=== PATIENT | female | born 1975 | race Hispanic/Latino ===

== ENCOUNTER 2024-07-30 20:01 | Inpatient (IN) | payer SELFPAY ==
[~2024-07-30] VITALS: Ht 152.4 cm; Wt 56.7 kg
[~2024-07-30 20:01] MED LIST: ACET-66 PO; BUSP7.5T7 PO; CARI4.5C PO; CEPH500B PO; DAPA10TA PO; DULO40CA2 PO; IBUP-2070 PO; INSLAN SQ; LOSA25TA41 PO; METF-446 PO; METO-391 PO; PREG150C PO; TRAZ-187 PO
[2024-07-30 20:33] VITALS: BP 135/91; PULSE 112; RESP 20; TEMP 98.3; O2SAT 99
[2024-07-30] MEDS ORDERED: VANCOMYCIN KIT 1 GM/250 ML IV.KIT IV ONE (22:30)
[2024-07-30] MEDS ORDERED: VANCOMYCIN PROTOCOL PER PHARMACY IV SCH (22:30)
[2024-07-30 23:11] LABS: HEMATOCRIT 30.1 % (36-48); MEAN CORPUSCULAR HEMOGLOBIN 28.7 pg (27.0-33.0); MEAN CORPUSCULAR HGB CONC 32.2 g/dL (32.0-36.0); MEAN CORPUSCULAR VOLUME 89.1 fL (79-99); RED BLOOD CELL COUNT(AUTO) 3.38 MIL/uL (4.00-5.50); RED CELL DISTRIBUTION WIDTH 13.1 % (11.0-15.5); WHITE BLOOD COUNT (AUTO) 11.7 K/uL (4.8-10.8)
[2024-07-30 23:21] LABS: CREATININE 1.6 mg/dL (0.5-1.0); POTASSIUM 4.5 mmol/L (3.5-5.1)
[2024-07-30 23:25] LABS: ALBUMIN 2.8 g/dL (3.5-5.0); BILIRUBIN,TOTAL 0.3 mg/dL (0.2-1.0); TOTAL PROTEIN, SERUM 7.7 g/dL (6.0-8.3)
[2024-07-31] VITALS (30 sets, daily range): BP systolic 93–145; BP diastolic 55–93; PULSE 80–100; RESP 12–20; TEMP 97.3–98.4; O2SAT 95–99
[2024-07-31] MEDS: ceFEPime HCL 1 GM VIAL IVPB SCH (02:14)
[2024-07-31] MEDS: VANCOMYCIN KIT 1 GM/250 ML IV.KIT IV ONE (03:42)
[2024-07-31] MEDS: duloXETine HCL 30 MG CAP PO SCH (08:00)
[2024-07-31] MEDS ORDERED: metFORmin HCL 500 MG TABLET PO SCH (08:00)
[2024-07-31] MEDS ORDERED: PoTASSium chl 10% ELIXIR 20MEQ 20 MEQ/15 ML UDCUP PO PRN (09:00)
[2024-07-31] MEDS ORDERED: PoTASSium chloRIDE 20MEQ/100ML 100 ML IV PRN (09:00)
[2024-07-31] MEDS: LoSARTan 25 MG TABLET PO SCH (09:00)
[2024-07-31] MEDS ORDERED: LACTULOSE 20 GM/30 ML UDCUP PO PRN (09:00)
[2024-07-31] MEDS: FAMOTIDINE 20MG VIAL IV SCH (10:54)
[2024-07-31] MEDS: INSULIN humuLIN R 100 UNIT/ML 3ML SQ SCH (11:30)
[2024-07-31] MEDS: 0.9%NACL 1000ML 1,000 ML IV ONE (11:33)
[2024-07-31] MEDS ORDERED: LIDOCAINE PF 100MG/5ML (2%) SYRINGE 5ML ONE (11:45)
[2024-07-31] MEDS ORDERED: MIDAZOLAM HCL 1 MG/ML 2ML VIAL ONE (11:46)
[2024-07-31] MEDS ORDERED: proPOFol 10 MG/ML 20ML VIAL IV ONE (11:46)
[2024-07-31] MEDS ORDERED: rocuRONium bROMide 10MG/1ML 5ML VL ONE (11:46)
[2024-07-31] MEDS ORDERED: FENTanyl CITRate PF 50 MCG/1 ML 2ML VIAL ONE (11:47)
[2024-07-31] MEDS ORDERED: phenylEPHRINE HCL 10 MG/ML 1ML VIAL IV ONE (12:02)
[2024-07-31] MEDS ORDERED: dexaMETHasone SOD PHOSPHATE 10MG/ML 1ML VIAL ONE (12:19)
[2024-07-31] MEDS ORDERED: ondanSETRON 4MG INJ ONE (12:19)
[2024-07-31] MEDS ORDERED: PHARMACY COMMUNICATION MISC SCH (16:30)
[2024-07-31] MEDS: INSULIN GLARgine 100 UNITS/ML 10 ML VIAL SQ SCH (20:45)
[2024-07-31] MEDS: queTIAPine fuMARate 100 MG TAB PO SCH (22:29)
[2024-07-31] MEDS: metoPROLOL tartRATE 50 MG TAB PO SCH (22:29)
[2024-07-31] MEDS: atorVAStatin 40 MG TABLET PO SCH (22:29)
[2024-08-01 03:57] VITALS: BP 103/64; PULSE 85; RESP 20; TEMP 98.4
[2024-08-01] MEDS: VANCOMYCIN 1G/250ML KIT 250 ML IV SCH (05:53)
[2024-08-01] MEDS: acetaMINOPHEN 325 MG TAB PO PRN (06:25)
[2024-08-01 07:30] VITALS: BP 124/77; PULSE 90; RESP 18; TEMP 97.7; O2SAT 95
[2024-08-01] MEDS ORDERED: morPHINE 2 MG SYG IM ONE (10:00)
[2024-08-01 10:18] LABS: BASOPHILS # (AUTO) 0.03 K/uL (0.00-0.20); BASOPHILS % (AUTO) 0.3 % (0.0-5.0); EOSINOPHILS # (AUTO) 0.17 K/uL (0.00-0.70); EOSINOPHILS % (AUTO) 1.6 % (0.0-8.0); HEMATOCRIT 26.6 % (36-48); IMMATURE GRANULOCYTE ABSOLUTE 0.06 K/uL (0-1); LYMPHOCYTES # (AUTO) 2.1 K/uL (1.0-4.8); LYMPHOCYTES % (AUTO) 19.2 % (21.0-51.0); MEAN CORPUSCULAR HEMOGLOBIN 29.2 pg (27.0-33.0); MEAN CORPUSCULAR HGB CONC 32.3 g/dL (32.0-36.0); MEAN CORPUSCULAR VOLUME 90.2 fL (79-99); MONOCYTES # (AUTO) 0.5 K/uL (0.1-1.0); MONOCYTES % (AUTO) 4.3 % (3.0-13.0); NEUTROPHILS # (AUTO) 8.1 K/uL (1.8-7.7); PLATELET COUNT (AUTO) 295 K/uL (130-400); RED BLOOD CELL COUNT(AUTO) 2.95 MIL/uL (4.00-5.50); RED CELL DISTRIBUTION WIDTH 13.2 % (11.0-15.5); WHITE BLOOD COUNT (AUTO) 10.9 K/uL (4.8-10.8)
[2024-08-01 10:23] LABS: INR 1.06 (0.85-1.15); PROTHROMBIN TIME 11.4 SEC (9.6-11.6)
[2024-08-01 10:24] LABS: PARTIAL THROMBOPLASTIN TIME 28.2 SEC (26.3-35.5)
[2024-08-01 10:35] LABS: ALBUMIN 2.3 g/dL (3.5-5.0); BILIRUBIN,TOTAL 0.2 mg/dL (0.2-1.0); MAGNESIUM 1.9 mg/dL (1.80-2.40); POTASSIUM 4.2 mmol/L (3.5-5.1); TOTAL PROTEIN, SERUM 6.7 g/dL (6.0-8.3)
[2024-08-01] MEDS: ENOXAPARIN SODIUM 40 MG/0.4 ML SYRINGE SQ SCH (11:21)
[2024-08-01 11:41] VITALS: BP 130/79; PULSE 92; RESP 19; TEMP 98
[2024-08-01] MEDS: ketOROlac 15MG/ML VIAL (15MG/ML) IV ONE (11:56)
[2024-08-01 16:40] VITALS: BP_SYST 162; BP_SYST 163; BP_DIAS 93; BP_DIAS 98; PULSE 93; RESP 18; TEMP 97.5
[2024-08-01 19:40] VITALS: BP 167/92; PULSE 96; RESP 20; TEMP 97.5; O2SAT 100
[2024-08-01] MEDS: hydrALAZine 25MG TABLET PO SCH (20:58)
[2024-08-01 23:16] VITALS: BP 128/57; PULSE 80; RESP 20; TEMP 97.2
[2024-08-02] VITALS (8 sets, daily range): BP systolic 115–195; BP diastolic 76–114; PULSE 85–101; RESP 18–22; TEMP 97.4–98.1; O2SAT 98–100
[2024-08-02 05:48] LABS: BASOPHILS # (AUTO) 0.03 K/uL (0.00-0.20); BASOPHILS % (AUTO) 0.4 % (0.0-5.0); EOSINOPHILS # (AUTO) 0.34 K/uL (0.00-0.70); EOSINOPHILS % (AUTO) 4.1 % (0.0-8.0); HEMATOCRIT 28.6 % (36-48); LYMPHOCYTES # (AUTO) 2.1 K/uL (1.0-4.8); LYMPHOCYTES % (AUTO) 25.9 % (21.0-51.0); MEAN CORPUSCULAR HEMOGLOBIN 28.8 pg (27.0-33.0); MEAN CORPUSCULAR HGB CONC 31.5 g/dL (32.0-36.0); MEAN CORPUSCULAR VOLUME 91.4 fL (79-99); MONOCYTES # (AUTO) 0.4 K/uL (0.1-1.0); MONOCYTES % (AUTO) 4.6 % (3.0-13.0); NEUTROPHILS # (AUTO) 5.3 K/uL (1.8-7.7); NEUTROPHILS % (AUTO) 63.8 % (40.0-77.0); PLATELET COUNT (AUTO) 276 K/uL (130-400); RED BLOOD CELL COUNT(AUTO) 3.13 MIL/uL (4.00-5.50); RED CELL DISTRIBUTION WIDTH 13.1 % (11.0-15.5); WHITE BLOOD COUNT (AUTO) 8.3 K/uL (4.8-10.8)
[2024-08-02 06:09] LABS: ALBUMIN 2.5 g/dL (3.5-5.0); BILIRUBIN,TOTAL 0.2 mg/dL (0.2-1.0); MAGNESIUM 1.7 mg/dL (1.80-2.40); POTASSIUM 4.3 mmol/L (3.5-5.1); TOTAL PROTEIN, SERUM 7.1 g/dL (6.0-8.3)
[2024-08-02] MEDS: VANCOMYCIN 1G/250ML KIT 250 ML IV SCH (07:37)
[2024-08-02] MEDS: morPHINE 2 MG SYG IVP PRN (09:00)
[2024-08-02] MEDS: LIDOCAINE 4% ADH..PATCH TP ONE (17:30)
[2024-08-02] MEDS: MAGNESIUM 2GM PREMIX 50ML 50 ML IV PRN (17:30)
[2024-08-02] MEDS ORDERED: LAbetaLOL 20MG SYG IV PRN ×2 (21:30→22:00)
[2024-08-02] MEDS: LAbetaLOL 20MG VIAL ONE (21:34)
[2024-08-02] MEDS ORDERED: LAbetaLOL 20MG VIAL IV PRN (22:30)
[2024-08-02] MEDS: ondanSETRON 4MG INJ IVP PRN (23:24)
[2024-08-03] VITALS (8 sets, daily range): BP systolic 102–172; BP diastolic 57–100; PULSE 66–94; RESP 18–20; TEMP 97.4–98.7; O2SAT 98
[2024-08-03 04:44] LABS: BASOPHILS # (AUTO) 0.02 K/uL (0.00-0.20); BASOPHILS % (AUTO) 0.2 % (0.0-5.0); EOSINOPHILS # (AUTO) 0.35 K/uL (0.00-0.70); EOSINOPHILS % (AUTO) 3.8 % (0.0-8.0); HEMATOCRIT 29.3 % (36-48); IMMATURE GRANULOCYTE ABSOLUTE 0.05 K/uL (0-1); LYMPHOCYTES # (AUTO) 1.7 K/uL (1.0-4.8); LYMPHOCYTES % (AUTO) 18.8 % (21.0-51.0); MEAN CORPUSCULAR HEMOGLOBIN 28.9 pg (27.0-33.0); MEAN CORPUSCULAR HGB CONC 32.4 g/dL (32.0-36.0); MEAN CORPUSCULAR VOLUME 89.1 fL (79-99); MONOCYTES # (AUTO) 0.4 K/uL (0.1-1.0); MONOCYTES % (AUTO) 4.7 % (3.0-13.0); NEUTROPHILS # (AUTO) 6.6 K/uL (1.8-7.7); PLATELET COUNT (AUTO) 319 K/uL (130-400); RED BLOOD CELL COUNT(AUTO) 3.29 MIL/uL (4.00-5.50); WHITE BLOOD COUNT (AUTO) 9.2 K/uL (4.8-10.8)
[2024-08-03 05:11] LABS: ALBUMIN 2.6 g/dL (3.5-5.0); BILIRUBIN,TOTAL 0.2 mg/dL (0.2-1.0); MAGNESIUM 2.5 mg/dL (1.80-2.40); POTASSIUM 4.4 mmol/L (3.5-5.1); TOTAL PROTEIN, SERUM 7.6 g/dL (6.0-8.3)
[2024-08-03] MEDS: LAbetaLOL 20MG SYG IV PRN (16:49)
[2024-08-04] VITALS (8 sets, daily range): BP systolic 83–186; BP diastolic 51–111; PULSE 68–98; RESP 16–20; TEMP 98–98.7; O2SAT 100
[2024-08-04 07:02] LABS: BASOPHILS # (AUTO) 0.02 K/uL (0.00-0.20); BASOPHILS % (AUTO) 0.3 % (0.0-5.0); EOSINOPHILS # (AUTO) 0.32 K/uL (0.00-0.70); EOSINOPHILS % (AUTO) 4.6 % (0.0-8.0); HEMATOCRIT 29.7 % (36-48); IMMATURE GRANULOCYTE ABSOLUTE 0.05 K/uL (0-1); LYMPHOCYTES # (AUTO) 1.9 K/uL (1.0-4.8); LYMPHOCYTES % (AUTO) 27.1 % (21.0-51.0); MEAN CORPUSCULAR HEMOGLOBIN 28.9 pg (27.0-33.0); MEAN CORPUSCULAR HGB CONC 32.3 g/dL (32.0-36.0); MEAN CORPUSCULAR VOLUME 89.5 fL (79-99); MONOCYTES # (AUTO) 0.3 K/uL (0.1-1.0); MONOCYTES % (AUTO) 4.6 % (3.0-13.0); NEUTROPHILS # (AUTO) 4.4 K/uL (1.8-7.7); NEUTROPHILS % (AUTO) 62.7 % (40.0-77.0); PLATELET COUNT (AUTO) 297 K/uL (130-400); RED BLOOD CELL COUNT(AUTO) 3.32 MIL/uL (4.00-5.50)
[2024-08-04 07:22] LABS: ALBUMIN 2.6 g/dL (3.5-5.0); BILIRUBIN,TOTAL 0.2 mg/dL (0.2-1.0); MAGNESIUM 1.9 mg/dL (1.80-2.40); TOTAL PROTEIN, SERUM 7.3 g/dL (6.0-8.3)
[2024-08-04] MEDS: VANCOMYCIN 750MG VIAL IVPB SCH (08:43)
[2024-08-04] MEDS: amLODIPine 5 MG TAB PO ONE (15:46)
[2024-08-04] MEDS: doCUSate SODIUM 100 MG CAP PO SCH (20:11)
[2024-08-04] MEDS: doCUSate SODIUM 100 MG CAP PO ONE (20:11)
[2024-08-05 03:59] VITALS: BP 92/52; PULSE 74; RESP 17; TEMP 98
[2024-08-05 05:24] LABS: BASOPHILS # (AUTO) 0.03 K/uL (0.00-0.20); BASOPHILS % (AUTO) 0.4 % (0.0-5.0); EOSINOPHILS # (AUTO) 0.29 K/uL (0.00-0.70); EOSINOPHILS % (AUTO) 3.7 % (0.0-8.0); HEMATOCRIT 27.5 % (36-48); IMMATURE GRANULOCYTE ABSOLUTE 0.04 K/uL (0-1); LYMPHOCYTES # (AUTO) 2.2 K/uL (1.0-4.8); LYMPHOCYTES % (AUTO) 28.1 % (21.0-51.0); MEAN CORPUSCULAR HEMOGLOBIN 28.4 pg (27.0-33.0); MEAN CORPUSCULAR HGB CONC 31.6 g/dL (32.0-36.0); MEAN CORPUSCULAR VOLUME 89.9 fL (79-99); MONOCYTES # (AUTO) 0.5 K/uL (0.1-1.0); MONOCYTES % (AUTO) 6.6 % (3.0-13.0); NEUTROPHILS # (AUTO) 4.8 K/uL (1.8-7.7); NEUTROPHILS % (AUTO) 60.7 % (40.0-77.0); PLATELET COUNT (AUTO) 349 K/uL (130-400); RED BLOOD CELL COUNT(AUTO) 3.06 MIL/uL (4.00-5.50); RED CELL DISTRIBUTION WIDTH 13.1 % (11.0-15.5); WHITE BLOOD COUNT (AUTO) 7.8 K/uL (4.8-10.8)
[2024-08-05 06:21] LABS: ALBUMIN 2.6 g/dL (3.5-5.0); BILIRUBIN,TOTAL 0.2 mg/dL (0.2-1.0); CREATININE 1.2 mg/dL (0.5-1.0); MAGNESIUM 2.7 mg/dL (1.80-2.40); POTASSIUM 3.6 mmol/L (3.5-5.1); TOTAL PROTEIN, SERUM 7.1 g/dL (6.0-8.3)
[2024-08-05] MEDS: PoTASSium chloRIDE 20MEQ ER 20 MEQ ERTAB PO PRN (06:35)
[2024-08-05 08:00] VITALS: BP 100/61; PULSE 82; RESP 18; TEMP 97.9
[2024-08-05] MEDS: amLODIPine 5 MG TAB PO SCH (08:19)
[2024-08-05 11:40] VITALS: BP 112/67; PULSE 89; RESP 20; TEMP 97.6
[2024-08-05 15:05] VITALS: BP 157/90; PULSE 97; RESP 20; TEMP 98.4
[2024-08-05 20:00] VITALS: O2SAT 100
[2024-08-05 20:48] VITALS: BP 164/93; PULSE 93; RESP 18; TEMP 97.6
[2024-08-06] VITALS (21 sets, daily range): BP systolic 82–179; BP diastolic 51–97; PULSE 64–98; RESP 12–19; TEMP 97.1–98; O2SAT 97–98
[2024-08-06] MEDS ORDERED: VANCOMYCIN 1G/250ML KIT 500 ML IV ONE (11:49)
[2024-08-06] MEDS: acetaMINOPHEN 1,000 MG/100 ML VIAL IV ONE (12:02)
[2024-08-06] MEDS ORDERED: proPOFol 10 MG/ML 20ML VIAL IV ONE (12:02)
[2024-08-06] MEDS ORDERED: LIDOCAINE PF 100MG/5ML (2%) SYRINGE 5ML ONE (12:02)
[2024-08-06] MEDS ORDERED: rocuRONium bROMide 10MG/1ML 5ML VL ONE (12:02)
[2024-08-06] MEDS: FAMOTIDINE 20MG VIAL IV ONE (12:02)
[2024-08-06] MEDS ORDERED: FENTanyl CITRate PF 50 MCG/1 ML 2ML VIAL ONE (12:03)
[2024-08-06] MEDS ORDERED: SUCCINYLCHOLINE CHLORIDE 20 MG/ML 10 ML VIAL ONE (12:04)
[2024-08-06] MEDS: 0.9%NACL 1000ML 1,000 ML IV ONE (12:05)
[2024-08-06] MEDS ORDERED: dexaMETHasone SOD PHOSPHATE 10MG/ML 1ML VIAL ONE (12:18)
[2024-08-06] MEDS ORDERED: ondanSETRON 4MG INJ ONE (12:18)
[2024-08-06] MEDS ORDERED: ketaMINE 50MG/ML SYRINGE 50 MG/ML DISP.SYRIN ONE (12:20)
[2024-08-06] MEDS ORDERED: GLYCOPYRROLATE 0.2 MG/ML 5 ML VIAL ONE (14:24)
[2024-08-06] MEDS ORDERED: NEOSTIGMINE METHYLSULFATE 1MG/ML IV ONE (14:25)
[2024-08-07] VITALS (7 sets, daily range): BP systolic 80–127; BP diastolic 48–79; PULSE 73–92; RESP 16–18; TEMP 98–98.5; O2SAT 94
[2024-08-07 06:33] LABS: BASOPHILS # (AUTO) 0.02 K/uL (0.00-0.20); BASOPHILS % (AUTO) 0.2 % (0.0-5.0); EOSINOPHILS # (AUTO) 0.02 K/uL (0.00-0.70); EOSINOPHILS % (AUTO) 0.2 % (0.0-8.0); HEMATOCRIT 29.8 % (36-48); IMMATURE GRANULOCYTE ABSOLUTE 0.07 K/uL (0-1); LYMPHOCYTES # (AUTO) 1.5 K/uL (1.0-4.8); LYMPHOCYTES % (AUTO) 13.2 % (21.0-51.0); MEAN CORPUSCULAR HEMOGLOBIN 28.9 pg (27.0-33.0); MEAN CORPUSCULAR HGB CONC 31.9 g/dL (32.0-36.0); MEAN CORPUSCULAR VOLUME 90.6 fL (79-99); MONOCYTES # (AUTO) 0.9 K/uL (0.1-1.0); NEUTROPHILS # (AUTO) 8.7 K/uL (1.8-7.7); NEUTROPHILS % (AUTO) 77.8 % (40.0-77.0); PLATELET COUNT (AUTO) 404 K/uL (130-400); RED BLOOD CELL COUNT(AUTO) 3.29 MIL/uL (4.00-5.50); RED CELL DISTRIBUTION WIDTH 13.3 % (11.0-15.5); WHITE BLOOD COUNT (AUTO) 11.2 K/uL (4.8-10.8)
[2024-08-07 08:44] LABS: ALBUMIN 2.8 g/dL (3.5-5.0); BILIRUBIN,TOTAL 0.2 mg/dL (0.2-1.0); CREATININE 1.5 mg/dL (0.5-1.0); POTASSIUM 4.9 mmol/L (3.5-5.1); TOTAL PROTEIN, SERUM 7.6 g/dL (6.0-8.3)
[2024-08-07] MEDS: acetaMINOPHEN WITH coDEINE 1 TAB TAB PO PRN (13:57)
[2024-08-07] MEDS ORDERED: morPHINE 2 MG SYG IVP PRN (14:00)
[2024-08-07 15:19] LABS: HEMOGLOBIN A1C 8.9 % (4.0-6.0)
[2024-08-07] MEDS: ceFEPime HCL 1 GM VIAL IVPB SCH (16:19)
== END 2024-08-07 18:05 | disposition home or self-care (01) | DRG 571 ==
LOC: EDH 20:01 → WSH 20:02 → 4CH 08-02 23:15
PROVIDERS: ADMIT Internal Medicine; ATTEND Internal Medicine
PROC: 0SPG05Z Removal of External Fixation Device from Left Ankle Joint, Open Approach (ICD-10-PCS; 2024-07-31)
PROC: 0QHH05Z Insertion of External Fixation Device into Left Tibia, Open Approach (ICD-10-PCS; 2024-07-31)
PROC: 0JBR0ZZ Excision of Left Foot Subcutaneous Tissue and Fascia, Open Approach (ICD-10-PCS; principal; 2024-07-31 11:55)
PROC: 0QSP04Z Reposition Left Metatarsal with Internal Fixation Device, Open Approach (ICD-10-PCS; 2024-08-06)
PROC: 0SP Lower Joints, Removal (ICD-10-PCS; 2024-08-06)
PROC: 0SGL04Z Fusion of Left Tarsometatarsal Joint with Internal Fixation Device, Open Approach (ICD-10-PCS; 2024-08-06)
PROC: 3E01329 Introduction of Other Anti-infective into Subcutaneous Tissue, Percutaneous Approach (ICD-10-PCS; 2024-08-06)
DX: L03.116 Cellulitis of left lower limb (principal); L02.612 Cutaneous abscess of left foot; B95.62 Methicillin resistant Staphylococcus aureus infection as the cause of diseases classified elsewhere; E11.40 Type 2 diabetes mellitus with diabetic neuropathy, unspecified; E11.65 Type 2 diabetes mellitus with hyperglycemia; F32.A Depression, unspecified; I10 Essential (primary) hypertension; B95.61 Methicillin susceptible Staphylococcus aureus infection as the cause of diseases classified elsewhere; M14.672 Charcot's joint, left ankle and foot; Z79.4 Long term (current) use of insulin; Z79.84 Long term (current) use of oral hypoglycemic drugs; Z82.3 Family history of stroke; Z90.710 Acquired absence of both cervix and uterus; M54.2 Cervicalgia
CPT/HCPCS: 36415; 71045; 72040; 73630; 80053; 80202; 82948; 83036; 83735; 84145; 85025; 85027; 85610; 85730; 86140; 87070; 87076; 87086; 87186; 87205; 93005; 93926; A4344; G0378; J0330; J0692; J1100; J1650; J1815; J1885; J2001; J2250; J2270; J2371; J2405; J2704; J2710; J3010; J3370; J3475; J3490; J7030; J7120; A4216; A4222; A4223; A4649; A4930; A6445; A6446; C1713; G8980-CI; G8983-CI